=== PATIENT | male | born 1955 | race Caucasian/White ===

== ENCOUNTER → 2017-10-03 | Outpatient (CLI) | payer MEDICAID | END | disposition home or self-care (01) | LOC: CFH 15:13 | PROVIDERS: ATTEND Internal Medicine Cardiovascular Disease | DX: I07.1 Rheumatic tricuspid insufficiency (principal); I48.0 Paroxysmal atrial fibrillation | CPT/HCPCS: 93306 ==

== ENCOUNTER → 2018-07-05 | Outpatient (CLI) | payer MEDICAID ==
[~2018-07-05] MED LIST: ACET500C7 PO; ASCO10004 PO; CHOL5000 PO; CYAN100014 PO; GINGER PO; MAGN100T PO; MULT-658 PO; OMEG1CAP39 PO; RESERVATROL PO; TEST75GE TP; THYR60TA12 PO; TURMERIC PO; VITA1TAB19 PO; [UNRECOGNIZED DRUG - OTHER] PO; [UNRECOGNIZED DRUG - OTHER] PO; [UNRECOGNIZED DRUG - OTHER] PO; [UNRECOGNIZED DRUG - OTHER] PO; [UNRECOGNIZED DRUG - OTHER] PO; [UNRECOGNIZED DRUG - OTHER] PO; [UNRECOGNIZED DRUG - REMARK] PO; vinpocetine PO
[2018-07-05 12:18] LABS: MICROSCOPIC NOT IND
== END | disposition home or self-care (01) ==
LOC: STAR 11:08
PROVIDERS: ATTEND Urology
DX: Z01.818 Encounter for other preprocedural examination (principal); N40.1 Benign prostatic hyperplasia with lower urinary tract symptoms
CPT/HCPCS: 81003; 87086; 93005

== ENCOUNTER 2018-07-12 13:36 | Inpatient (IN) | payer MEDICAID ==
[2018-07-05 11:32] VITALS: BP 113/77
[~2018-07-12] VITALS: Ht 185.4 cm; Wt 76.7 kg
[2018-07-12] MEDS ORDERED: LACTATED RINGERS 1,000 ML IV SCH (14:04)
[2018-07-12] MEDS ORDERED: MIDAZOLAM 1 MG/ML, 2ML ONE (16:03)
[2018-07-12] MEDS ORDERED: FENTANYL PF 250 MCG/5ML ONE (16:04)
[2018-07-12] MEDS ORDERED: LIDOCAINE-MPF 2% ,5ML ONE (17:01)
[2018-07-12] MEDS ORDERED: PROPOFOL 10 MG/ML, 20ML ONE (17:01)
[2018-07-12] MEDS ORDERED: ROCURONIUM 10 MG/ML,10ML ONE (17:01)
[2018-07-12] MEDS ORDERED: DEXAMETHASONE 4 MG/ML, 1ML ONE ×2 (17:16)
[2018-07-12] MEDS ORDERED: ONDANSETRON 2MG/ML, 2ML ONE ×2 (17:45)
[2018-07-12] MEDS ORDERED: MEPERIDINE/PF 25MG/0.5ML IVPush PRN (18:00)
[2018-07-12] MEDS ORDERED: HYDROmorphone 1 MG/ML, 1ML IV PRN (18:00)
[2018-07-12] MEDS ORDERED: HALOPERIDOL 5 MG/ML IV PRN (18:00)
[2018-07-12] MEDS ORDERED: LORazepam 2 MG/ML, 1ML IVPush PRN (18:00)
[2018-07-12] MEDS ORDERED: ACETAMINOPHEN 325 MG TABLET PO PRN (18:00)
[2018-07-12] MEDS ORDERED: PROMETHAZINE 25 MG/ML, 1ML IV PRN (18:00)
[2018-07-12] MEDS ORDERED: hydrALAzine 20 MG/ML, 1ML IV PRN (18:00)
[2018-07-12] MEDS ORDERED: OXYcodone 5 MG/5 ML ORAL.SOL UDC PO PRN (18:00)
[2018-07-12] MEDS ORDERED: FENTANYL PF 100 MCG/2ML IV PRN (18:00)
[2018-07-12] MEDS ORDERED: LABETALOL 5MG/ML, 20ML IV PRN (18:00)
[2018-07-12] MEDS ORDERED: OXYcodone 5 MG/5 ML ORAL.SOL UDC ONE (18:34)
[2018-07-12 20:23] VITALS: BP 110/81
[2018-07-12] MEDS ORDERED: ONDANSETRON 2MG/ML, 2ML IV PRN (21:00)
[2018-07-12] MEDS ORDERED: morphine SULFATE 10 MG/ML, 1ML IV PRN (21:00)
[2018-07-12] MEDS ORDERED: CIPROFLOXACIN/PMX 400MG/200ML 200 ML IVPB SCH (21:00)
[2018-07-12] MEDS ORDERED: TRAZODONE 50MG TABLET PO PRN (21:00)
[2018-07-12] MEDS: LACTATED RINGERS 1,000 ML IV SCH (21:00)
[2018-07-12] MEDS: ACETAMINOPHEN 500 MG TABLET PO SCH (23:19)
[2018-07-12 23:56] VITALS: BP 111/74
[2018-07-13 03:56] VITALS: BP 117/78
[2018-07-13] MEDS: ACETAMINOPHEN 500 MG TABLET PO SCH ×2 (05:36→10:35)
[2018-07-13] MEDS: LACTATED RINGERS 1,000 ML IV SCH (07:07)
[2018-07-13 11:20] VITALS: BP 125/69
[2018-07-13] MEDS ORDERED: CEFD250S26 PO (12:15)
[2018-07-14] MEDS ORDERED: HYDROcodone/APAP 5/325 TABLET PO PRN (21:00)
== END 2018-07-13 13:00 | disposition home or self-care (01) | DRG 713 ==
LOC: OR 13:36 → 4NOR 19:45 → OR 20:13 → 4WST 20:14 → 4NOR 20:32 → DCLOUNGE 07-13 12:40
PROVIDERS: ADMIT Urology; ATTEND Urology
PROC: 0VB08ZZ Excision of Prostate, Via Natural or Artificial Opening Endoscopic (ICD-10-PCS; 2018-07-12)
PROC: 0V508ZZ Destruction of Prostate, Via Natural or Artificial Opening Endoscopic (ICD-10-PCS; principal; 2018-07-12 16:00)
DX: N40.1 Benign prostatic hyperplasia with lower urinary tract symptoms (principal); N13.8 Other obstructive and reflux uropathy; I48.0 Paroxysmal atrial fibrillation; E29.1 Testicular hypofunction; Z79.899 Other long term (current) drug therapy
CPT/HCPCS: 88305; G0378; J0744; J1100; J2250; J2405; J2704; J3010; J3490; J7120

== ENCOUNTER → 2021-03-31 | Outpatient (CLI) | payer MEDICARE, MEDICAID ==
[~2021-03-31] MED LIST changes: +ASCO100018 PO; -ASCO10004 PO; +CEFD250S26 PO
== END | disposition home or self-care (01) ==
LOC: CFH 07:17
PROVIDERS: ATTEND Internal Medicine Cardiovascular Disease
DX: I08.8 Other rheumatic multiple valve diseases (principal); I48.0 Paroxysmal atrial fibrillation
CPT/HCPCS: 93306; 93356